=== PATIENT | male | born 1990 | race Caucasian/White ===

== ENCOUNTER 2017-03-24 04:47 | Emergency (ER) | payer OTHER ==
[2017-03-24 06:16] LABS: Bilirubin Negative (Negative); Blood, Urine Negative (Negative); Clarity CLEAR (Clear); Glucose, Urine (Dipstick) Negative (Negative); Leukocyte Negative (Negative); Nitrite Negative (Negative); Protein, Urine (Dipstick) Negative (Neg-Trace); Specific Gravity, Urine 1.032 (1.002-1.036)
[2017-03-24] MEDS ORDERED: HYDROcodone/Acetaminophen 5/325 mg Tablet ONE (06:39)
--- NOTE | 2017-03-24 08:24 | ULT ---
TESTICULAR ULTRASOUND WITH DOPPLER (BURRELL-SCALE, COLOR-FLOW, AND SPECTRAL DOPPLER): HISTORY: Left-sided groin pain for one week. FINDINGS: The right testis measures 5.2 x 2.7 x 3 cm, and the left testis measures 5.3 x 2.3 x 3 cm. No testic ular mass or microlithiasis is seen. Flow is demonstrated to the testicles and the epididymides. Th e epididymides also have a normal appearance. There is a small hydrocele on the left. A prominent t ubular structure with flow is seen in the left scrotum (extratesticular), which probably demonstrates increased flow on Valsalva. IMPRESSION: 1. No evidence of testicular mass or torsion. 2. Probable left varicocele. POS: EFFIE
[2017-03-25 22:13] LABS: Chlamydia by PCR Not Detected (NotDetected); GC by PCR Not Detected (NotDetected)
== END 2017-03-24 09:10 | disposition home or self-care (01) ==
LOC: ERS 04:47
DX: I86.1 Scrotal varices (principal); J44.9 Chronic obstructive pulmonary disease, unspecified; F17.210 Nicotine dependence, cigarettes, uncomplicated
CPT/HCPCS: 76870; 81003; 87491; 87591; 93976

== ENCOUNTER 2019-03-28 22:50 | Emergency (ER) | payer OTHER | END 2019-03-28 23:33 | disposition left against medical advice (07) | LOC: ERS 22:50 | DX: Z53.21 Procedure and treatment not carried out due to patient leaving prior to being seen by health care provider (principal) ==

== ENCOUNTER 2019-12-31 10:42 | Emergency (ER) | payer OTHER ==
[2019-12-31 18:57] LABS: SARS-CoV-2 MS2 Positive; SARS-CoV-2 N Gene Negative; SARS-CoV-2 S Gene Negative; SARS-CoV-2 by NAA Not Detected (NotDetected); SARS-CoV-2 orf1ab Negative
== END 2019-12-31 11:24 | disposition home or self-care (01) ==
LOC: ERS 10:42
DX: R51.9 Headache, unspecified (principal); R11.2 Nausea with vomiting, unspecified; R19.7 Diarrhea, unspecified; Z20.828 Contact with and (suspected) exposure to other viral communicable diseases; F17.210 Nicotine dependence, cigarettes, uncomplicated
CPT/HCPCS: 87635; 99284; U0003

== ENCOUNTER 2020-06-20 20:56 | Emergency (ER) | payer OTHER | END 2020-06-20 23:23 | disposition home or self-care (01) | LOC: ERS 20:56 | DX: L03.316 Cellulitis of umbilicus (principal); F17.210 Nicotine dependence, cigarettes, uncomplicated | CPT/HCPCS: 99283 ==

== ENCOUNTER 2021-01-31 13:56 | Emergency (ER) | payer SELFPAY | END 2021-01-31 15:05 | disposition home or self-care (01) | LOC: ERS 13:56 | DX: L02.416 Cutaneous abscess of left lower limb (principal); F17.210 Nicotine dependence, cigarettes, uncomplicated | CPT/HCPCS: 99282 ==

== ENCOUNTER 2025-01-11 22:06 | Emergency (ER) | payer SELFPAY ==
[2025-01-11] MEDS ORDERED: Dexamethasone 10 MG/ML VIAL ONE (22:27)
[2025-01-11] MEDS ORDERED: Ibuprofen 200 MG TAB ONE (22:27)
[2025-01-11] MEDS ORDERED: Albuterol 200 PUFF (6.7GM INHALER) ONE (22:27)
== END 2025-01-11 23:20 | disposition home or self-care (01) ==
LOC: ERS 22:06
DX: J06.9 Acute upper respiratory infection, unspecified (principal); J45.909 Unspecified asthma, uncomplicated; R03.0 Elevated blood-pressure reading, without diagnosis of hypertension; F17.210 Nicotine dependence, cigarettes, uncomplicated
CPT/HCPCS: 71046; 87081; 87428; 87430; J1100